=== PATIENT | female | born 1980 | race African-American/Black ===

== ENCOUNTER 2025-11-07 09:50 | Outpatient (CLI) | payer BC, SELFPAY ==
--- NOTE | ~2025-11-07 | MM_ITS ---
EXAMINATION: MM diagnostic jaye BI w mariela HISTORY: Diffusely lumpy breast tissue. Known cysts. TECHNIQUE: Craniocaudal and mediolateral oblique 3-D tomosynthesis images were obtained and synthetic 2-D images were generated. CAD analysis was submitted and interpreted. COMPARISON: None available. BREAST PARENCHYMAL COMPOSITION: Dense: The breasts are extremely dense FINDINGS: No suspicious masses are seen. There are no suspicious calcifications. No unexplained architectural distortion is seen. There are no skin or nipple abnormalities identified. There is no adenopathy seen on the images submitted. IMPRESSION: No mammographic evidence to suggest malignancy is seen. The patient may return to screening mammography as per ACR guidelines. BI-RADS 1 - Negative. Reviewed, dictated and finalized at location C. CONSULTANT
== END 2025-11-07 09:51 | disposition home or self-care (01) ==
PROVIDERS: PCP Obstetrics & Gynecology Gynecology; Visit Provider Obstetrics & Gynecology Gynecology
DX: R92.8 Other abnormal and inconclusive findings on diagnostic imaging of breast (principal)
CPT/HCPCS: 77062; 77066; G0279